=== PATIENT | female | born 1965 | race Two or more races ===

== ENCOUNTER 2022-06-14 14:19 | Outpatient (REF) | payer OTHER, SELFPAY ==
[2022-06-14 14:51] LABS: Binax Now Covid-19 Ag Negative (Negative)
[2022-06-14 14:52] LABS: Binax Internal Control QC Valid
== END 2022-06-14 14:20 | disposition home or self-care (01) ==
LOC: HO.HMGCLDS 14:19
PROVIDERS: Visit Provider Physician Assistant
DX: Z20.822 Contact with and (suspected) exposure to COVID-19 (principal); J06.9 Acute upper respiratory infection, unspecified
CPT/HCPCS: 87811; C9803

== ENCOUNTER 2024-03-11 16:23 | Outpatient (AMB) | payer OTHER, SELFPAY ==
--- NOTE | 2024-03-11 16:25 | MHC.OFFWIV ---
Intake Vital Signs 03/11/24 16:31 Height 5 ft 2 in Weight 124 lb BMI 22.7 BP 118/76 Blood Pressure Location Lt brachial Position Sitting Pulse 78 Pulse Source Pulse Oximeter Temp 98.6 F Temp Source Oral Pulse Oximetry (%) 98 Intake Visit Reasons: EP Nausea, stomach pain Intake Note: pt is here for nausea, stomach pain for over a week Patient Tobacco Use Status: Never used Tobacco Allergies No Known Allergies Allergy (Verified 03/13/24 07:12) Medication List - Last Reconciled 03/13/24 by Waqas Zamora MD carvedilol 6.25 mg PO BID cetirizine 10 mg PO DAILY cholecalciferol (vitamin D3) 50 mcg PO DAILY fluticasone propionate 50 mcg/actuation 2 sprays intranasal DAILY loratadine (Allergy Relief (loratadine)) 10 mg PO DAILY omeprazole 40 mg PO DAILY sacubitril-valsartan 24-26 mg (Entresto) 1 tab PO BID Do you need a note to return to daycare/school/sports/work: Yes HPI EP Nausea, stomach pain HPI Details 58 yr old female presents to the office for a sick visit. Patient is complaining of abdominal pain for the past few days. Symptoms are worse after eating. One episode of vomiting. No fever or chills. No belching. PFSH Surgical History No pertinent past surgical history Family History Father CVD (cardiovascular disease) Mother Stomach cancer Social History Patient Tobacco Use Status: Never used Tobacco Physical Exam Vital Signs: Last Vital Signs Temp 98.6 F 03/11/24 16:31 Pulse 78 03/11/24 16:31 BP 118/76 03/11/24 16:31 Pulse Ox 98 03/11/24 16:31 BMI result Body Mass Index 22.7 Const General: cooperative and healthy appearing Nutritional Appearance: well nourished Orientation/consciousness: patient oriented x3 Limitations: no limitations HEENT Head: Yes normal to inspection Eyes General: appearance normal, both eyes and all related structures Neck Neck: Yes normal visual inspection Chest Chest palpation & inspection: normal palpation of entire chest wall Resp Effort & Inspection: normal respiratory effort GI Other: Abd: No organomegaly. BS well heard in all quadrants. No rebound tenderness. Neuro General: patient oriented x3 Assessment & Plan Assessment & Plan (1) Abdominal pain: Code(s): R10.9 - Unspecified abdominal pain Plan: Benign clinical exam. PPI started. BW has been ordered. Pt does not have a PCP. Offered to see her at [place] office if sx do not improve. Orders: Orders Liver Panel 03/12/24 R10.9 - Unspecified abdominal pain Basic Metabolic Panel 03/12/24 R10.9 - Unspecified abdominal pain Lipase 03/12/24 R10.9 - Unspecified abdominal pain Thyroid Stimulating Hormone 03/12/24 R10.9 - Unspecified abdominal pain Erythrocyte Sedimentation Rate 03/12/24 R10.9 - Unspecified abdominal pain Complete Blood Count no Diff 03/12/24 R10.9 - Unspecified abdominal pain Medications: New omeprazole 40 mg PO DAILY 30 caps 0RF Coding Level of Care Code Est Pt Level 4 (96028) Diagnoses Abdominal pain R10.9
[2024-03-11 16:31] VITALS: BP 118/76; PULSE 78; TEMP 37; O2SAT 98; BMI 22.7
== END 2024-03-11 16:52 | disposition home or self-care (01) ==
PROVIDERS: Visit Provider Internal Medicine
DX: R10.9 Unspecified abdominal pain (principal)
CPT/HCPCS: 99214

== ENCOUNTER 2024-03-12 07:43 | Outpatient (REF) | payer OTHER, SELFPAY ==
[2024-03-12 10:40] LABS: Hematocrit 37.3 % (37.0-47.0); Hemoglobin 12.1 g/dl (12.0-16.0); Mean Corpuscular HGB Conc 32.4 g/dl (31.0-35.0); Mean Corpuscular Hemoglobin 31.1 pg (27.0-33.0); Mean Corpuscular Volume 95.9 fL (80.0-98.0); Mean Platelet Volume 9.1 fL (9.4-12.3); Platelet Count 292 X10*3/uL (160-400); Red Blood Count 3.89 X10*6/uL (4.20-5.50); Red Cell Distribution Width 13.1 % (11.0-16.0); White Blood Count 4.3 X10*3/uL (4.8-10.8)
[2024-03-12 11:26] LABS: Erythrocyte Sedimentation Rate 28 MM/HR (0-20)
[2024-03-12 11:54] LABS: Alanine Aminotransferase 32 U/L (0-31); Albumin Level 4.1 g/dL (3.5-5.0); Alkaline Phosphatase 83 U/L (39-117); Anion Gap 11 (12-20); Aspartate Amino Transferase 37 U/L (5-31); Bilirubin Direct 0.2 mg/dL (0.0-0.5); Bilirubin Total 0.4 mg/dL (0.0-1.0); Blood Urea Nitrogen 15 mg/dL (9-16); Calcium 9.3 mg/dL (8.4-10.2); Carbon Dioxide 28 mmol/L (22-29); Chloride 107 mmol/L (96-108); Estimated Glomerular Filt Rate > 60; Glucose Random 88 mg/dL (60-115); Lipase 61 U/L (8-78); Potassium 4.3 mmol/L (3.3-5.1); Sodium 142 mmol/L (135-145); Total Protein 7.7 g/dL (6.5-8.0)
[2024-03-12 12:13] LABS: Thyroid Stimulating Hormone 1.59 uIU/mL (0.32-4.0)
== END 2024-03-12 07:44 | disposition home or self-care (01) ==
LOC: HO.HMGCLDS 07:43
PROVIDERS: PCP Internal Medicine; Visit Provider Internal Medicine
DX: R10.9 Unspecified abdominal pain (principal)
CPT/HCPCS: 36415; 80048; 80076; 83690; 84443; 85027; 85652